=== PATIENT | male | born 1950 | race American Indian/Alaskan Native ===

== ENCOUNTER 2018-01-19 13:20 | Emergency (ER) | payer OTHER ==
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
[2018-01-19] MEDS ORDERED: FLEXERIL PO ONE (18:10)
[2018-01-19] MEDS ORDERED: NORCO 5/325 PO ONE (18:12)
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
[2018-01-19 20:20] VITALS: BP 146/72
== END 2018-01-19 20:16 | disposition home or self-care (01) ==
LOC: ED 13:20
DX: S16.1XXA Strain of muscle, fascia and tendon at neck level, initial encounter (principal); M25.511 Pain in right shoulder; M25.512 Pain in left shoulder; I10 Essential (primary) hypertension; E11.9 Type 2 diabetes mellitus without complications; E78.5 Hyperlipidemia, unspecified; Z87.891 Personal history of nicotine dependence; Z88.0 Allergy status to penicillin; V89.2XXA Person injured in unspecified motor-vehicle accident, traffic, initial encounter; Y93.89 Activity, other specified; Y92.488 Other paved roadways as the place of occurrence of the external cause; Y99.8 Other external cause status
CPT/HCPCS: 72125; 72128; 72131